=== PATIENT | female | born 1965 | race American Indian/Alaskan Native ===

== ENCOUNTER 2017-11-01 11:42 | Outpatient (CLI) | payer BC ==
--- NOTE | 2017-11-01 14:19 | XRay Report ---
XRAY CHEST TWO VIEWS: 11/01/17 11:42:00 CLINICAL: Positive PPD. COMPARISON: 06/27/16 FINDINGS: Normal heart and pulmonary vasculature. The lungs are normally expanded and clear.The bones and soft tissues are unremarkable. IMPRESSION: Normal chest.No signs of acute or chronic TB.
--- NOTE | 2017-11-02 14:32 | Mammography Report ---
BILATERAL DIGITAL SCREENING MAMMOGRAM with CAD : 11/01/17 11:42:00 CLINICAL: Routine screening. COMPARISON:07/29/15 and 04/09/14 FINDINGS: The breasts are heterogeneously dense, which may obscure small masses. No new mass, architectural distortion or suspicious calcifications. IMPRESSION: No mammographic evidence of malignancy. BI-RADS CATEGORY: 2 -- Benign RECOMMENDATION: Routine mammographic screening in one year. COMMENT: Patient follow-up letters are generated by our [employer] application.
== END 2017-11-01 11:43 | disposition home or self-care (01) ==
LOC: SPVIMAG 11:42
DX: Z12.31 Encounter for screening mammogram for malignant neoplasm of breast (principal); R76.11 Nonspecific reaction to tuberculin skin test without active tuberculosis
CPT/HCPCS: 71020; G0202; 77067

== ENCOUNTER 2018-06-17 10:46 | Outpatient (CLI) | payer BC ==
--- NOTE | 2018-06-17 11:32 | XRay Report ---
XRAY RIGHT KNEE 3 THREE VIEWS: 06/17/18 10:46:00 CLINICAL: Knee pain. FINDINGS: Moderate diffuse osteopenia. No fracture or dislocation. Medial joint space narrowing with a small osteophyte. The lateral joint space is normal with a small osteophyte. A tiny inferior patellofemoral osteophyte. No joint effusion. Normal soft tissues. IMPRESSION: Osteopenia and mild osteoarthritis.
== END 2018-06-17 10:47 | disposition home or self-care (01) ==
LOC: SPVIMAG 10:46
DX: M17.11 Unilateral primary osteoarthritis, right knee (principal); M85.88 Other specified disorders of bone density and structure, other site